=== PATIENT | female | born 1950 | race Caucasian/White ===

== ENCOUNTER → 2017-02-27 | Outpatient (CLI) | payer OTHER | LOC: M.ULTRA 12:16 | DX: E04.1 Nontoxic single thyroid nodule (principal) ==

== ENCOUNTER → 2017-08-21 | Outpatient (CLI) | payer MEDICARE, OTHER | LOC: M.RAD 08:55 | DX: Z12.31 Encounter for screening mammogram for malignant neoplasm of breast (principal) ==

== ENCOUNTER → 2017-09-18 | Outpatient (CLI) | payer MEDICARE, OTHER | LOC: M.RAD 12:59 | DX: Z13.820 Encounter for screening for osteoporosis (principal); Z78.0 Asymptomatic menopausal state ==

== ENCOUNTER → 2018-06-29 | Outpatient (CLI) | payer MEDICARE, OTHER | LOC: M.ULTRA 09:47 | DX: E04.2 Nontoxic multinodular goiter (principal) ==

== ENCOUNTER → 2018-08-26 | Outpatient (CLI) | payer MEDICARE, OTHER | LOC: M.RAD 09:51 | DX: Z12.31 Encounter for screening mammogram for malignant neoplasm of breast (principal) ==

== ENCOUNTER → 2019-08-30 | Outpatient (CLI) | payer MEDICARE, OTHER | LOC: M.RAD 07:27 | PROVIDERS: ATTEND Family Medicine | DX: Z12.31 Encounter for screening mammogram for malignant neoplasm of breast (principal) ==

== ENCOUNTER → 2020-08-29 | Outpatient (CLI) | payer MEDICARE, OTHER | LOC: M.RAD 08-10 10:30 | PROVIDERS: ATTEND Family Medicine | DX: Z12.31 Encounter for screening mammogram for malignant neoplasm of breast (principal); N95.1 Menopausal and female climacteric states; M85.88 Other specified disorders of bone density and structure, other site; N64.89 Other specified disorders of breast ==

== ENCOUNTER → 2020-09-16 | Outpatient (CLI) | payer MEDICARE, OTHER ==
--- NOTE | 2020-10-03 14:51 | SLEEP ---
[address] [address] SLEEP STUDY REPORT Name: MAHESH BEAVER Room: [facility].#: [id number] Admission: 09/16/20 Attend Phys: Neda Sprague MD Discharge: Date of : 54 Report #: [id number] THIS REPORT FOR: cc: Neda Sprague MD, Katrina MD Pervez, Adeel MD ~ DATE OF STUDY: 09/16/2020 SLEEP STUDY INDICATION FOR SLEEP STUDY: Obstructive sleep apnea diagnosed on home sleep study. Sleep study is being performed for pertinent positives airway pressure titration. INTERPRETATION: Total duration of the study is 382 minutes, out of which she was asleep for only 113 minutes in an overall sleep efficiency markedly decreased to 29.6% and the patient was awake for most of the night. Sleep onset initially occurred around 2 hours after lying down in bed. There is no REM sleep recorded. N1 sleep duration is 10%, N2 duration is 90%. There is no N3 sleep recorded either. Mean heart rate is 74. Periodic limb movement index is normal. Arousal index is 5.8. This is a CPAP titration. Review of the CPAP titration indicates the patient in fact was on a CPAP pressure of 5 cm of water. Due to the patient being awake for most of the night, evaluation of response to CPAP therapy could not be performed. The patient's O2 saturation is reported to be adequately maintained during the sleep study. IMPRESSION: The patient is reported to have obstructive sleep apnea diagnosed based on a home sleep study. I do not have access to that home sleep study at this time. During the sleep study, the patient also was evaluated on CPAP, however, an adequate evaluation was not possible on account of the fact that the patient was awake for most of the night. When awake, the patient's O2 saturation is noted to be adequately maintained. RECOMMENDATIONS: Clinical correlation is advised. Based on her clinical picture and results on the home sleep study, possible options may include the use of a CPAP auto titrated device or repeating an in-lab sleep study for positive airway pressure titration after the administration of a hypnotic agent. This entire sleep study was reviewed by board certified sleep physician. <ELECTRONICALLY SIGNED> By: Rickie Garcia MD 10/03/20 [id number] Garcia MD /nt
== END ==
LOC: M.SLEEPLAB 19:51
PROVIDERS: ATTEND Family Medicine
DX: G47.33 Obstructive sleep apnea (adult) (pediatric) (principal); G47.34 Idiopathic sleep related nonobstructive alveolar hypoventilation